=== PATIENT | female | born 1990 | race African-American/Black ===

== ENCOUNTER 2018-07-11 01:44 | Observation (INO) | payer MEDICAID ==
[~2018-07-11] VITALS: Ht 162.6 cm; Wt 69.4 kg
[2018-07-11] MEDS ORDERED: MVI, ADULT NO.1 10 ML in LACTATED RINGERS 1,000 ML IV NR ×2 (03:00)
[2018-07-11 03:10] LABS: CLARITY URINE CLEAR (CLEAR); COLOR URINE YELLOW (YELLOW); KETONES URINE NEGATIVE (NEGATIVE); LEUKOCYTE ESTERASE URINE NEGATIVE (NEGATIVE); NITRITE URINE NEGATIVE (NEGATIVE); OCCULT BLOOD URINE 2+ (NEGATIVE); PH URINE 7.5 (4.5-8.0); PROTEIN URINE NEGATIVE (NEGATIVE); SPECIFIC GRAVITY URINE 1.006 (1.005-1.030); UROBILINOGEN URINE 0.2 E.U./dL (0.2-1.0)
[2018-07-11] MEDS ORDERED: BETAMETHASONE ACET/BETAMET 30 MG/5 ML VIAL IM NR (06:16)
[2018-07-11] MEDS: TERBUTALINE SULFATE 1MG/ML VIAL SUBCUT PRN ×2 (06:26→06:57)
[2018-07-12] MEDS ORDERED: PNV1TABL76 MT (09:38)
== END 2018-07-11 09:30 | disposition home or self-care (01) ==
LOC: 8 EST LDRP 01:44
PROVIDERS: ADMIT Specialist; ATTEND Specialist
DX: O62.9 Abnormality of forces of labor, unspecified (principal); O26.892 Other specified pregnancy related conditions, second trimester; R19.7 Diarrhea, unspecified; R35.0 Frequency of micturition; Z3A.26 26 weeks gestation of pregnancy
CPT/HCPCS: 36415; 76805; 76818; 80051; 81003; 93970; 96365; 96366; 96372; 99281; G0378; J0702; J3105; J3490; J7120; 96360; 96361

== ENCOUNTER 2018-07-12 08:39 | Observation (INO) | payer MEDICAID ==
[~2018-07-12] VITALS: Ht 162.6 cm; Wt 69.4 kg
[2018-07-12] MEDS ORDERED: BETAMETHASONE ACET/BETAMET 30 MG/5 ML VIAL IM NR (09:30)
[2018-07-12] MEDS ORDERED: PNV1TABL76 MT (09:38)
== END 2018-07-12 09:45 | disposition home or self-care (01) ==
LOC: 8 EST LDRP 08:39
PROVIDERS: ADMIT Specialist; ATTEND Specialist
DX: O26.892 Other specified pregnancy related conditions, second trimester (principal); R10.30 Lower abdominal pain, unspecified; Z3A.27 27 weeks gestation of pregnancy; O99.89 Other specified diseases and conditions complicating pregnancy, childbirth and the puerperium; M54.9 Dorsalgia, unspecified
CPT/HCPCS: 96372; 99281; G0378; J0702

== ENCOUNTER 2018-09-18 16:27 | Observation (INO) | payer MEDICAID ==
[~2018-09-18] VITALS: Ht 162.6 cm; Wt 74.4 kg
[~2018-09-18 16:27] MED LIST: PNV1TABL76 MT
== END 2018-09-18 19:00 | disposition home or self-care (01) ==
LOC: 8 EST LDRP 16:27
PROVIDERS: ADMIT Specialist; ATTEND Specialist
DX: O26.899 Other specified pregnancy related conditions, unspecified trimester (principal); R10.9 Unspecified abdominal pain; Z3A.00 Weeks of gestation of pregnancy not specified
CPT/HCPCS: 99281; G0378

== ENCOUNTER 2018-09-23 16:01 | Observation (INO) | payer MEDICAID ==
[~2018-09-23] VITALS: Ht 162.6 cm; Wt 74.4 kg
[2018-09-23] MEDS ORDERED: LACTATED RINGERS 1,000 ML IV SCH (18:00)
[2018-09-23 18:10] LABS: CLARITY URINE CLEAR (CLEAR); COLOR URINE YELLOW (YELLOW); KETONES URINE NEGATIVE (NEGATIVE); LEUKOCYTE ESTERASE URINE TRACE (NEGATIVE); NITRITE URINE NEGATIVE (NEGATIVE); OCCULT BLOOD URINE NEGATIVE (NEGATIVE); PROTEIN URINE NEGATIVE (NEGATIVE); SPECIFIC GRAVITY URINE 1.014 (1.005-1.030); UROBILINOGEN URINE 0.2 E.U./dL (0.2-1.0)
== END 2018-09-23 19:35 | disposition home or self-care (01) ==
LOC: 8 EST LDRP 16:01
PROVIDERS: ADMIT Specialist; ATTEND Specialist
DX: O62.9 Abnormality of forces of labor, unspecified (principal); Z3A.37 37 weeks gestation of pregnancy
CPT/HCPCS: 81003; 99281; G0378; 96360

== ENCOUNTER 2018-10-15 19:40 | Inpatient (IN) | payer MEDICAID ==
[~2018-10-15] VITALS: Ht 162.6 cm; Wt 74.4 kg
[2018-10-15] MEDS ORDERED: METHYLERGONOVINE MALEATE 0.2 MG/ML IM PRN (20:00)
[2018-10-15] MEDS ORDERED: CARBOPROST TROMETHAMINE 250 MCG/ML AMPUL IM PRN (20:00)
[2018-10-15] MEDS ORDERED: MISOPROSTOL 100MCG TABLET VG SCH (20:00)
[2018-10-15] MEDS ORDERED: BUTORPHANOL TARTRATE 2 MG/ML VIAL IV PRN (20:00)
[2018-10-15 20:40] LABS: CLARITY URINE CLEAR (CLEAR); COLOR URINE YELLOW (YELLOW); KETONES URINE NEGATIVE (NEGATIVE); LEUKOCYTE ESTERASE URINE NEGATIVE (NEGATIVE); NITRITE URINE NEGATIVE (NEGATIVE); OCCULT BLOOD URINE 2+ (NEGATIVE); PROTEIN URINE NEGATIVE (NEGATIVE); SPECIFIC GRAVITY URINE 1.017 (1.005-1.030); UROBILINOGEN URINE 0.2 E.U./dL (0.2-1.0)
[2018-10-15 20:46] LABS: BASOPHILS % 0.4 % (0.0-2.0); EOSINOPHILS % 0.4 % (0.0-5.0); HEMATOCRIT. 36.2 % (36.0-48.0); HEMOGLOBIN. 12.1 g/dL (12.0-16.0); LYMPHOCYTES % 35.2 % (20.0-50.0); MEAN CORPUSCULAR HEMOGLOBIN 29.5 pg (28.0-32.0); MEAN PLATELET VOLUME 10.1 fl (7.4-10.4); MONOCYTES % 8.9 % (2.0-8.0); NEUTROPHILS % 55.1 % (40.0-76.0); PLATELET 179 x1000/uL (130-400); RED BLOOD CELL COUNT 4.11 mill/uL (4.2-5.4); RED CELL DISTRIBUTION WIDTH 16.4 % (11.6-14.6)
[2018-10-15 20:49] LABS: *AMPHETAMINES SCREEN URINE NEGATIVE (NEGATIVE)
[2018-10-15] MEDS: LACTATED RINGERS 1,000 ML IV SCH (20:49)
[2018-10-15 20:50] LABS: *BARBITURATES SCREEN URINE NEGATIVE (NEGATIVE); *BENZODIAZEPINES SCREEN URINE NEGATIVE (NEGATIVE); *COCAINE SCREEN URINE NEGATIVE (NEGATIVE); CANNABINOID URINE SCREEN NEGATIVE (NEGATIVE); METHADONE URINE SCREEN NEGATIVE (NEGATIVE); OPIATES URINE SCREEN NEGATIVE (NEGATIVE); PHENCYCLIDINE URINE SCREEN NEGATIVE (NEGATIVE)
[2018-10-15 20:55] LABS: INR 0.9; PARTIAL THROMBOPLASTIN TIME 29.3 sec (23.4-31.0); PROTHROMBIN TIME 9.2 sec (9.6-11.0)
[2018-10-15] MEDS: MISOPROSTOL 100MCG TABLET VG PRN (21:10)
[2018-10-15 21:22] LABS: HEPATITIS B SURFACE ANTIGEN NEGATIVE
[2018-10-16] MEDS: MISOPROSTOL 100MCG TABLET VG PRN (01:13)
[2018-10-16] MEDS: LACTATED RINGERS 1,000 ML IV SCH ×2 (01:27→08:19)
[2018-10-16] MEDS: DEXT 5%/LR + PITOCIN 20UNITS/L 1,000 ML IV SCH ×3 (02:20→21:27)
[2018-10-16] MEDS ORDERED: ROPIVACAINE HCL/PF EPIDURAL 200 ML EPI SCH (10:15)
[2018-10-16] MEDS ORDERED: DIPHENHYDRAMINE 50MG/ML VIAL IV PRN ×2 (10:15→19:15)
[2018-10-16] MEDS ORDERED: ONDANSETRON HCL 4MG/2ML INJ IV PRN ×2 (10:15→19:15)
[2018-10-16] MEDS ORDERED: FENTANYL CITRATE/PF 50MCG/ML 2ML VIAL ONE (17:48)
[2018-10-16] MEDS ORDERED: MORPHINE SULFATE/PF 1MG/ML 10ML AMP ONE (17:48)
[2018-10-16] MEDS ORDERED: SODIUM BICARBONATE 4% (2.4MEQ) 5ML VIAL IV ONE (17:48)
[2018-10-16] MEDS ORDERED: OXYTOCIN 10 UNITS/ML 1ML ONE (18:00)
[2018-10-16] MEDS ORDERED: ONDANSETRON HCL 4MG/2ML INJ ONE (18:00)
[2018-10-16] MEDS ORDERED: MIDAZOLAM HCL 2 MG/2 ML VIAL ONE (18:06)
[2018-10-16 18:20] LABS: BG BASE EXCESS -3.3 mmol/L (-2.0-2.0); BG BASE EXCESS -4.7 mmol/L (-2.0-2.0); BG FRACTION INSPIRED OXYGEN 21; BG HCO3 ACT 19.6 mmol/L (22.0-26.0); BG HCO3 ACT 21.2 mmol/L (22.0-26.0); BG OXYGEN SATURATION 63.8 % (92.0-98.5); BG PCO2 34.4 mmHg (35.0-45.0); BG PCO2 36.6 mmHg (35.0-45.0); BG PH 7.373 (7.350-7.450); BG PH 7.381 (7.350-7.450); BG PO2 33.7 mmHg (75.0-100.0); BG PO2 < 30.3 mmHg (75.0-100.0); BG SAMPLE SITE CORD; BG VENT MODE ROOM AIR
[2018-10-16] MEDS ORDERED: MEPERIDINE HCL/PF 25MG/ML CPJ IV PRN (19:15)
[2018-10-16] MEDS ORDERED: MORPHINE SULFATE 2 MG/ML CPJ (NOT FOR IM USE) IV PRN (19:15)
[2018-10-16] MEDS ORDERED: KETOROLAC 30MG/ML VIAL IV PRN (19:15)
[2018-10-16 21:15] VITALS: BP 114/71
[2018-10-17 00:12] VITALS: BP 101/47
[2018-10-17] MEDS: DEXT 5%/LR + PITOCIN 20UNITS/L 1,000 ML IV SCH (02:20)
[2018-10-17 04:00] VITALS: BP 107/74
[2018-10-17 08:00] VITALS: BP 96/53
[2018-10-17] MEDS ORDERED: IBUPROFEN 400MG TABLET ONE (17:49)
[2018-10-17 19:30] VITALS: BP 97/54
[2018-10-17 20:26] LABS: HEMATOCRIT 25.5 % (36.0-48.0); HEMOGLOBIN 8.6 g/dL (12.0-16.0); MEAN CORPUSCULAR HEMOGLOBIN 29.9 pg (28.0-32.0); MEAN CORPUSCULAR VOLUME 89.1 fL (81.0-99.0); PLATELET 167 x1000/uL (130-400); RED BLOOD CELL COUNT 2.86 mill/uL (4.2-5.4); RED CELL DISTRIBUTION WIDTH 16.4 % (11.6-14.6)
[2018-10-17] MEDS ORDERED: IBUPROFEN 400MG TABLET PO PRN (20:30)
[2018-10-17] MEDS ORDERED: HYDROCODONE/ACETAMINOPHEN 5/325MG TABLET PO PRN ×2 (20:30)
[2018-10-17] MEDS ORDERED: LANOLIN OINT 7GM TUBE TOP PRN (20:30)
[2018-10-17] MEDS ORDERED: ACETAMINOPHEN WITH CODEINE 300/30MG TABLET PO PRN (20:30)
[2018-10-17] MEDS ORDERED: BISACODYL 10MG SUPP PR PRN (20:30)
[2018-10-17] MEDS: MAGNESIUM/ALUMINUM HYDROXIDE/SIMETHICONE 30ML UDC PO SCH (22:13)
[2018-10-17] MEDS: ACETAMINOPHEN WITH CODEINE 300/30MG TABLET PO PRN (22:14)
[2018-10-17] MEDS: DOCUSATE SODIUM 100MG CAPSULE PO SCH (22:14)
[2018-10-17] MEDS: SIMETHICONE 80MG TABLET CHEW PO SCH (22:14)
[2018-10-18] MEDS: ACETAMINOPHEN WITH CODEINE 300/30MG TABLET PO PRN ×4 (03:59→20:00)
[2018-10-18 04:00] VITALS: BP 113/62
[2018-10-18 08:29] VITALS: BP 114/65
[2018-10-18] MEDS: FERROUS SULFATE 325MG TABLET PO SCH ×3 (09:00→17:05)
[2018-10-18] MEDS: PRENATAL VIT/FE FUMARATE/FA TABLET PO SCH ×2 (09:00→09:01)
[2018-10-18] MEDS: SIMETHICONE 80MG TABLET CHEW PO SCH ×4 (09:01→20:53)
[2018-10-18] MEDS: MAGNESIUM/ALUMINUM HYDROXIDE/SIMETHICONE 30ML UDC PO SCH ×4 (09:01→20:52)
[2018-10-18 15:02] VITALS: BP 112/61
[2018-10-18 19:48] VITALS: BP 129/65
[2018-10-18] MEDS: DOCUSATE SODIUM 100MG CAPSULE PO SCH (20:53)
[2018-10-19] VITALS: BP 122/62
[2018-10-19] MEDS: ACETAMINOPHEN WITH CODEINE 300/30MG TABLET PO PRN (03:05)
[2018-10-19 04:33] VITALS: BP 113/69
[2018-10-19] MEDS ORDERED: HYDROCODONE/ACETAMINOPHEN 5/325MG TABLET PO PRN (07:15)
[2018-10-19 07:30] VITALS: BP 103/62
[2018-10-19] MEDS: FERROUS SULFATE 325MG TABLET PO SCH (10:00)
[2018-10-19] MEDS: PRENATAL VIT/FE FUMARATE/FA TABLET PO SCH (10:00)
== END 2018-10-19 12:10 | disposition home or self-care (01) | DRG 540 ==
LOC: 8 EST LDRP 19:40 → OBSVTOIN 19:40 → 8EST 10-16 20:50
PROVIDERS: ADMIT Specialist; ATTEND Specialist
PROC: 10D00Z1 Extraction of Products of Conception, Low, Open Approach (ICD-10-PCS; principal; 2018-10-18)
DX: O48.0 Post-term pregnancy (principal); O99.42 Diseases of the circulatory system complicating childbirth; O76 Abnormality in fetal heart rate and rhythm complicating labor and delivery; I49.9 Cardiac arrhythmia, unspecified; Z37.0 Single live birth; Z3A.41 41 weeks gestation of pregnancy; Z83.3 Family history of diabetes mellitus; Z81.8 Family history of other mental and behavioral disorders; O90.81 Anemia of the puerperium
CPT/HCPCS: 36415; 36600; 80305; 81003; 82805; 85027; 86592; 86703; 86762; 86850; 86900; 87340; G0378; J0595; J1200; J1885; J2250; J2274; J2405; J2590; J2795; J3010; J3490; J7120

== ENCOUNTER 2024-02-12 14:50 | Emergency (ER) | payer MEDICAID ==
[~2024-02-12] VITALS: Ht 165.1 cm; Wt 66.0 kg
== END 2024-02-12 14:57 | disposition left against medical advice (07) ==
LOC: ER 14:50
DX: G40.909 Epilepsy, unspecified, not intractable, without status epilepticus (principal); R11.2 Nausea with vomiting, unspecified
CPT/HCPCS: 99283